=== PATIENT | female | born 1980 | race Caucasian/White ===

== ENCOUNTER 2019-11-01 12:12 | Emergency (ER) | payer MEDICAID, SELFPAY ==
[2019-11-01 12:28] VITALS: BP 117/74; PULSE 69; RESP 18; TEMP 36.2; O2SAT 99
[2019-11-01 12:36] LABS: Bilirubin Small (Negative); Blood Negative (Negative); Clarity Clear (Clear); Glucose Negative (Negative); Ketones Trace mg/dL (Negative); Leukocyte Esterase Trace (Negative); Nitrite Negative (Negative); Specific Gravity >= 1.030 (1.005-1.025); pH 5.5 (5-8)
[2019-11-01 12:42] LABS: Bacteria Moderate HPF (Negative); Epithelial Cells Moderate HPF (Negative); RBC 0-2 HPF (0-2)
[2019-11-01 12:43] LABS: C & S Indicated? No/Sq. Contamination; Casts Negative LPF (Negative); Crystals Negative HPF (Negative); Mucus Moderate (Negative)
--- NOTE | 2019-11-01 12:44 | W.ED.GENAD ---
Discharge Plan Disposition Patient Disposition: HOME Condition: Good Discharge Details Chief Complaint: Abd Prob Clinical Impression: Abdominal pain, Constipation Primary Care Provider: Madonna Burnett ED Provider: Luz Marina Perez Home Meds and New Rx's Prescriptions: New omeprazole 20 mg capsule,delayed release(DR/EC) 20 mg PO DAILY Qty: 14 RF: 0 No Action promethazine 25 mg tablet 25 mg PO DAILY Qty: 30 RF: 2 ondansetron [Zofran ODT] 4 mg tablet,disintegrating 4 mg PO ONCE Qty: 12 RF: 3 clonidine HCl 0.2 mg tablet 0.2 mg PO HS Qty: 30 RF: 3 methadone 10 MG tablet 90 mg PO DAILY RF: 0 Flovent HFA 120 PUFF HFA aerosol inhaler 2 puff Inhalation PRN PRNRF: 0 albuterol sulfate [ProAir HFA] 8.5 GM HFA aerosol inhaler 2 puff PO PRN PRNRF: 0 famotidine 20 mg Tablet 20 mg PO DAILY RF: 0 docusate sodium 100 mg Capsule 100 mg PO DAILY RF: 0 dextroamphetamine-amphetamine 30 mg Capsule,Extended Release 24hr 30 mg PO QAM RF: 0 Discharge Instructions Instructions: Constipation (ED), Abdominal Pain (ED) Additional Instructions: Drink plenty of fluids. Consider a capful of MiraLAX once daily for the next few days until having regular bowel movements. Continue Colace. Use nausea medication if needed as previously prescribed Use reflux medication as prescribed. Rest activities as tolerated. Recheck with primary care doctor in the next 2 to 3 days for reevaluation. For any fevers, chills, nausea, vomiting or worsening symptoms have immediate reevaluation as discussed Medical Decision Making 39-year-old presents for complaints of abdominal pain which began this morning. Patient reports right-sided abdominal pain said maximum tenderness. Patient denies significant pain at this time. Patient reports pain was worse with specific range of motion as well as with attempted bowel movement. Patient reports vomited x1 this morning. No bowel changes associated. Patient has some baseline constipation for which she is on a daily bowel regimen. She was able to move her bowels this morning however she does report significant pain when attempting to move her bowels noted in her abdomen. Patient denies any fevers, chills, headache or dizziness. Patient is on methadone daily which she is compliant with. She denies any recent labs and methadone. She denies history of IV drug use, admits to oral opiate use greater than 10 years ago. Patient denies any upper respiratory symptoms recently. On exam patient has notable right upper quadrant and right lower quadrant tenderness. Denies urinary urgency or frequency. Patient offered pain medication at this time as she reports 6 out of 10 pain with palpation of her abdomen. She declines pain medication or nausea medication at this time. Patient CT of her abdomen reveals CLINICAL HISTORY: RUQ and RLQ abdominal pain, vomitting TECHNIQUE: After IV and without benefit of oral contrast. Exam is also limited by lack of intraabdominal fat. COMPARISON: No exams were available for comparison FINDINGS: The bowel loops are difficult to distinguish. The heart size is normal. The lung bases are clear. The veins are not yet opacified. The liver, gallbladder, spleen, adrenals, pancreas and kidneys are unremarkable. There is no bowel dilatation. There is increased stool seen throughout the colon. There is no abnormal bowel distention or wall thickening. The bladder is nearly empty. The uterus and ovaries are unremarkable. IMPRESSION: Increased quantity of stool. No acute abnormality. Bedside ultrasound preformed with Dr. Nito Yoon reveals normal GB. no Gallstones. Patient is feeling comfortable at this time. Patient does have a prescription at home for Phenergan which she has a full bottle of. Patient will take nausea medication at home. Patient advised of likely constipation as her etiology of pain given her reassuring CT and ultrasound today. Patient's labs are also reassuring. Patient encouraged use of MiraLAX for a few days in conjunction with Colace. Patient reports her understanding. Patient is very familiar with a bowel regimen and is comfortable using these medications. Patient encouraged close follow-up with primary care doctor. Return precautions discussed. The patient was stable and requested discharge. Prior to discharge, my usual and customary return precautions were reviewed with the patient - this included follow-up instructions and reasons to return to the Emergency Department if conditions worsens, does not improve as expected, or other new concerns arise. HPI General Date/Time Provider Initiated Documentation: 11/01/19 12:21. HPI Narrative: This is a 39-year-old patient who complains of abdominal pain presenting to the ER pain which began this morning. Patient reports she awoke with right-sided abdominal pain which is intermittent. Patient reports occasionally sharp pain. Associated with single episode of vomiting. No fevers or chills. Patient denies significant radiation. Patient denies bowel changes. Patient reports pain is significantly worse with attempted bowel movements. Patient does report history of constipation for which she is on a daily bowel regimen. Patient denies upper respiratory symptoms, sore throat or coughing. Patient denies headache or dizziness. Denies urinary urgency or frequency or dysuria. Patient does report no significant change in abdominal pain after taking sips of coffee this morning. Patient does report a history of reflux and did not have notable reflux yesterday. Patient has discontinued her previously prescribed reflux medication has been using Pepcid without relief. Patient denies chest pain or back pain at this time. Denies difficulty breathing shortness of breath or wheezing. Related Data Home Medications Medication Instructions Recorded Confirmed albuterol sulfate [ProAir HFA] 2 puff PO PRN PRN 06/29/16 11/01/19 fluticasone propionate [Flovent 2 puff INHALATION PRN PRN 06/29/16 11/01/19 220MCG] methadone 90 mg PO DAILY 06/29/16 11/01/19 clonidine HCl 0.2 mg tablet 0.2 mg PO HS #30 tab-cap 12/16/18 11/01/19 ondansetron 4 mg disintegrating 4 mg PO ONCE #12 [place] 01/15/19 11/01/19 tablet promethazine 25 mg tablet 25 mg PO DAILY #30 tab-cap 01/15/19 11/01/19 dextroamphetamine-amphetamine 30 mg PO QAM 11/01/19 11/01/19 docusate sodium 100 mg PO DAILY 11/01/19 11/01/19 famotidine 20 mg PO DAILY 11/01/19 11/01/19 omeprazole 20 mg PO DAILY #14 cap 11/01/19 Previous Rx's Medication Instructions Recorded clonidine HCl 0.2 mg tablet 0.2 mg PO HS #30 tab-cap 12/16/18 ondansetron 4 mg disintegrating 4 mg PO ONCE #12 [place] 01/15/19 tablet promethazine 25 mg tablet 25 mg PO DAILY #30 tab-cap 01/15/19 omeprazole 20 mg PO DAILY #14 cap 11/01/19 Allergies Allergy/AdvReac Type Severity Reaction Status Date / Time No Known Allergies Allergy Unverified 11/01/19 12:42 General Stated Complaint: Abd Prob MACKENZIE: 3 Review of Systems All systems reviewed & are unremarkable except as noted in HPI and below Constitutional Constitutional: Denies chills, Denies fever(s) and Denies headache(s) ENT Ears, Nose, Mouth, and Throat: Denies otalgia, Denies headache(s), Denies nasal congestion and Denies sore throat Cardiovascular Cardiovascular: Reports chest pain (Described as reflux yesterday), Denies chest pain with activity, Denies rapid heart rate and Denies radiating jaw, neck or arm pain Respiratory Respiratory: Denies cough, Denies pain with cough and Denies wheezing Gastrointestinal Gastrointestinal: Reports abdominal pain, Denies diarrhea, Reports nausea and Reports vomiting Genitourinary Genitourinary: Denies dysuria, Denies urinary hesitancy and Denies urinary urgency Neurologic Neurologic: Denies headache(s) Allergic/Immunologic Allergic/Immunologic: Denies wheezing [facility] Medical History Anxiety disorder Wellbutrin. Dr Ennis Asthma Attention deficit hyperactivity disorder Stopped Adderall. Sees Dr. Ennis for counseling. Tobacco use disorder Surgical History (Updated 09/09/18 @ 14:35 by [facility] ID) Dilation and curettage (~2007) Heavy bleeding GANGLION CYST REPAIR (~2007) Ligation of fallopian tube (10/07/13) PPTL by [facility] Social History Smoking/Tobacco Use Status: Current every day Alcohol Intake: current Alcohol Intake frequency: holidays/special occasions only Drug use: Occasionally Substance use type: marijuana Exam Narrative Exam Narrative: CONST: Thin, in no acute distress. Well hydrated. Alert and alert. HENMT: Head nomocephalic, normal to inspection. Atraumatic. Hearing grossly normal. External ear canal no erythema or swelling. TM normal bilaterally. Nose normal to inspection. No rhinnorhea. Normal facial exam. Oral mucosa normal. Tounge normal. Dentition normal. Normal posterior oropharynx. Uvula midline. EYES: General normal appearance. Alignment normal. Eyelids normal. Conjunctiva normal. Sclera normal. PERRL. NECK: Normal visual inspection. FROM. No lymphadenopathy. Trachea midline. No Midline tenderness. CHEST: Normal insepection of the chest. RESP: Normal respiratory effort. Speaking full sentences. No cough. No wheezing. No retractions. Clear to auscaltation. Breath sound equal and present bilaterally. CARDIO: No JVD. Normal PMI. Regular Rate. Regular Rhythm. Normal peripheral pulses. Back: No CVA tenderness bilaterally GI: Normal inspection of abdomen. No distension. Soft. Moderate tenderness in the right upper and right lower quadrants. Mild epigastric tenderness. Bowel sounds present in all 4 quadrants. No rebound. No gaurding. Course Vital Signs Vital signs: Vital Signs Temperature 36.2 C L 11/01/19 12:28 Pulse 69 11/01/19 12:28 Respiratory Rate 18 11/01/19 12:28 Blood Pressure 117/74 11/01/19 12:28 Pulse Oximetry 99 11/01/19 12:28 Temperature 36.2 C L 11/01/19 12:28 Temperature Source Temporal Artery Scan 11/01/19 12:28 Pulse 69 11/01/19 12:28 Respiratory Rate 18 11/01/19 12:28 Respiratory Effort Non-Labored 11/01/19 12:33 Blood Pressure 117/74 11/01/19 12:28 Blood Pressure Position Sitting 11/01/19 12:28 Pulse Oximetry 99 11/01/19 12:28 Oxygen Delivery Method Room Air 11/01/19 12:28 Oxygen Flow Rate 0 11/01/19 12:28 Pain Level 6 11/01/19 12:28 Lab/Test Results Lab/Test Results: Laboratory Tests Range/Units 11/01/19 12:22 Urine Color (Yellow) Yellow Urine Clarity (Clear) Clear Urine pH (5-8) 5.5 Ur Specific [place] (1.005-1.025) >= 1.030 H Urine Protein (Negative) mg/dL Negative Urine Ketones (Negative) mg/dL Trace H Urine Blood (Negative) Negative Urine Nitrite (Negative) Negative Urine Bilirubin (Negative) Small H Urine Urobilinogen (Up TO 0.2) EU/dL 1.0 H Ur Leukocyte Esterase (Negative) Trace H Urine RBC (0-2) HPF 0-2 Urine WBC (0-5) HPF 5-10 Ur Epithelial Cells (Negative) HPF Moderate Urine Crystals (Negative) HPF Negative Urine Bacteria (Negative) HPF Moderate Urine Casts (Negative) LPF Negative Urine Mucus (Negative) Moderate Ur Culture Indicated? No/sq. contamination Urine Glucose (Negative) mg/dL Negative POC- Test(urine) Negative
[2019-11-01] MEDS: Normal Saline 1,000 ML 1000 ML IV ×2 (12:55→13:20)
[2019-11-01 13:15] LABS: Absolute Basophil Count 0.06 k/cumm (0.0-0.2); Absolute Eosinophil Count 0.16 k/cumm (0.0-0.7); Absolute Lymphocyte Count 1.97 k/cumm (1.2-3.4); Absolute Monocyte Count 0.58 k/cumm (0.11-0.7); Basophils % 1.3; Eosinophils % 3.6; HCT 36.7 % (36.0-46.0); HGB 12.3 g/dL (12.0-15.5); Lymphocytes % 44.1; Mean Corp. HGB Concentration 33.5 g/dL (32.0-36.0); Mean Corpuscular Hemoglobin 30.8 pg (27.0-33.0); Mean Corpuscular Volume 91.8 fL (80-95); Mean Platelet Volume 9.9 fL (8.0-11.0); Platelet Count 224 x1000/uL (130-400); White Blood Cell Count 4.47 k/cumm (4.4-10.8)
[2019-11-01 13:23] LABS: ALT 14 U/L (14-59); AST 15 U/L (15-37); Albumin 3.9 g/dL (3.4-5.0); Alkaline Phosphatase 44 U/L (46-116); Anion Gap 6.9 mmol/L (3-11); BUN 12 mg/dL (7-18); Bilirubin, Total 0.8 mg/dL (0.2-1.0); CO2 28.1 mmol/L (21.0-32.0); CREATININE 0.86 mg/dL (0.55-1.02); Calcium 8.4 mg/dL (8.5-10.1); Chloride 106 mmol/L (98-107); Glucose 86 mg/dL (74-106); Potassium 3.7 mmol/L (3.5-5.1); Sodium 141 mmol/L (136-145)
[2019-11-01 13:28] LABS: Lipase 50 U/L (73-393)
[2019-11-01] MEDS: Omnipaque 350 MG/ML 100 ML BTL IV (13:41)
--- NOTE | 2019-11-01 13:41 | DI.CT_ITS ---
EXAM: CT ABDOMEN AND PELVIS W CLINICAL HISTORY: RUQ and RLQ abdominal pain, vomitting TECHNIQUE: After IV and without benefit of oral contrast. Exam is also limited by lack of intraabdo kimmy fat. COMPARISON: No exams were available for comparison FINDINGS: The bowel loops are difficult to distinguish. The heart size is normal. The lung bases are clear. The veins are not yet opacified. The liver, gallbladder, spleen, adrenals, pancreas and kidneys are unremarkable. There is no bowel dilatation. There is increased stool seen throughout the colon. Th ere is no abnormal bowel distention or wall thickening. The bladder is nearly empty. The uterus and ovaries are unremarkable. IMPRESSION: Increased quantity of stool. No acute abnormality.
[2019-11-01 15:36] VITALS: BP 104/58; PULSE 78; RESP 18; TEMP 36.7; O2SAT 100
== END 2019-11-01 15:40 | disposition home or self-care (01) ==
PROVIDERS: Emergency Medicine; Emergency Provider Physician Assistant; PCP Family Medicine
DX: R10.11 Right upper quadrant pain (principal); R10.31 Right lower quadrant pain; K59.09 Other constipation; Z79.899 Other long term (current) drug therapy
CPT/HCPCS: 80053; 81025; 83690; 96360; 96361; 99285; 74177; 81003; 81015; 84703; 85025; 99284; J3490

== ENCOUNTER 2021-01-12 01:55 | Outpatient (CLI) | payer MEDICAID, SELFPAY ==
[2021-01-13 13:57] LABS: COVID-19 RT-PCR UVMMC Result Negative (Negative)
== END 2021-01-12 01:56 | disposition home or self-care (01) ==
LOC: LBO 01:56
PROVIDERS: PCP Nurse Practitioner Family; Visit Provider Surgery
DX: Z20.822 Contact with and (suspected) exposure to COVID-19 (principal); Z01.818 Encounter for other preprocedural examination
CPT/HCPCS: U0003

== ENCOUNTER 2021-01-17 07:23 | Day surgery (SDC) | payer MEDICAID, SELFPAY ==
[2021-01-17] VITALS (10 sets, daily range): BP systolic 91–114; BP diastolic 47–65; PULSE 48–75; RESP 10–19; TEMP 36–36.8; O2SAT 98–100
--- NOTE | 2021-01-17 06:46 | ROE_ITS ---
Date of service: 01/17/21 Time of Service: 10:07 Operative Note Operative Note DATE OF PROCEDURE: 01/17/21 PRE-OP DIAGNOSIS: left inguinal hernia and umbilical hernia POST-OP DIAGNOSIS: same PROCEDURE: Left inguinal hernia repair with mesh Umbilical hernia repair with mesh SURGEON: Margo Fabian STATISTICAL MACHINE SERVICER: Emilia Zamarripa ANESTHESIA TYPE: General LMA/ETT (ASA 2/ Brook Flores CRNA) and Primary Nerve Block Refer to Anesthesia Record ESTIMATED BLOOD LOSS: 25 PATHOLOGY: none sent COMPLICATIONS: None Patient was transported to: PACU Patient's condition: stable Implants: Ventralex ST 1.7 inch round patch: LOT [id number] REF [id number] EXP 2022-07-21 BARD Mesh: LOT [id number] [id number] EXP 2024-07-21 Indications: 39 year old female with a reducible left inguinal hernia and umbilical hernia who is here today to discuss repair of both. We discussed inguinal and umbilical hernia repairs with mesh. Her umbilical hernia was already repaired once primarily and not failed. Using a pamphlet we reviewed the procedures as well as their risks and complications. I also discussed preoperative ultrasound-guided nerve blocks to help with postoperative pain. Because she is on methadone did not want to give her narcotics if at all possible. We discussed that with the blocks patients have been quite comfortable and have been able to go home on Tylenol and ibuprofen. We also discussed Covid testing and quarantine requirements. Risks, benefits and complications have been reviewed. Complications include but are not limited to bleeding, infection, injury to vas, vessels and nerves, injury to bowel and adverse reaction to medications. Questions were entertained and answered to their satisfaction and they wished to proceed. COVID-19 testing explained to the patient. Reason for test reviewed. Quarantine per state requirements reviewed with patient. Patient understands and agrees to testing. Proceed with LIH and Umbilical hernia repairs with mesh with left TAP block and BRS block Findings: small 1 cm umbilical hernia Indirect left inguinal hernia Procedure Description: After informed concent was obtained the patient was taken to the operating room and placed in a supine position. Monitors and SCDs were applied and a timeout was done. The patient's name, date of , procedure type, procedure site, allergies to medications, preoperative antibiotic, and DVT prophylaxis were all reviewed. Fire risk was assessed. Next anesthesia did a tap block on the left side under ultrasound guidance as well as a bilateral rectus block. Please see their separate dictation. Once anesthesia was done the abdomen was prepped and draped in a sterile surgical fashion. 2% Lidocaine was injected into the dermis just under the umbilicus. An incision was made with a 10 blade under the umbilicus. Dissection was done with cautery through the subcutaneous tissues and through the umbilical stalk down to the fascia. The hernia defect was identified and measured 1.5 cm. The hernia sac was opened and the peritoneum was swept for adhesions. No adhesions were noted. A 1.7 inch round mesh was then placed under the peritoneum and secured in 4 quarters with 2-0 Proline. Once the mesh was secured the tissues were irrigated with some normal saline. No bleeding was identified. The fascia was closed over the mesh with 0 vicryl running suture. 2-0 Vicryl was used to secure the umbilicus down to the fascia. The dermis was re-approximated with a running 4-0 Vicryl. Next 2% lidocaine was injected into the dermis in the left lower quadrant. An incision was made with a 10 blade in the left lower quadrant. Dissection was done with cautery through the subcutaneous tissues and Loreta's fascia down to the external oblique fascia. The external ring was identified and the external oblique fascia was opened sharply through the external ring. The cut fascia was grasped with hemostats. Pre-peritoneal fat was identified and reduced back into the pre-perironeal space. There was no direct hernia. A 3 x 6 piece of mesh was then cut to size and attached to the lacunar ligament using a 2-0 Prolene double armed suture. The mesh was secured laterally and medially with a 2-0 Prolene, with a running suture. Once the mesh was secured the tissues were irrigated with some normal saline. No bleeding was identified. The external oblique fascia was re-approximated using 2-0 Vicryl running suture. The Loreta's fascia was re-approximated using interrupted 3-0 Vicryl. The dermis was re- approximated with a running 4-0 Vicryl. The skin was cleaned and dried and skin affix was applied to both incisions. The patient was woken up and taken back to recovery in stable condition. There were no immediate complications. Sponge, instrument and needle counts were correct at the end of the case x2.
--- NOTE | 2021-01-17 06:47 | PDOC.DSDIS_ITS ---
Discharge Plan Disposition Patient Disposition: HOME Condition: Good Discharge Details Reason For Visit: [facility] and Attending Provider: Margo Fabian Primary Care Provider: Senait Yañez Home Meds and New Rx's Prescriptions: Continued bisacodyl 5 mg tablet 5 mg PO DAILY RF: 0 omeprazole 20 mg capsule,delayed release(DR/EC) 20 mg PO HS RF: 0 Vyvanse 70 mg capsule 70 mg PO DAILY RF: 0 ondansetron HCl [Zofran] 4 mg tablet 4 mg PO DAILY RF: 0 promethazine 25 mg tablet 25 mg PO TID PRNRF: 0 methadone 10 MG tablet 90 mg PO DAILY RF: 0 albuterol sulfate [ProAir HFA] 8.5 GM HFA aerosol inhaler 2 puff PO PRN PRNRF: 0 Discharge Instructions Instructions: Inguinal Hernia Repair (DC), Umbilical Hernia Repair (DC) Additional Instructions: Activity at Home after surgery: 1. Make sure you walk outside at least 4 times per day 2. You should be able to climb a flight of stairs 3. No driving while in pain or taking pain medications 4. No strenuous activity or heavy lifting for 4 weeks (open surgery) Diet, Nutrition, & wound healin. Avoid alcohol until after you are recovered from your surgery 2. Make sure to eat plenty of lean protein (meat, fish, eggs, cottage cheese, beans) 3. Eat a variety of fruits and vegetables. Eat plenty of high fiber foods to avoid constipation. 4. Drink plenty of liquids to stay hydrated and avoid constipation Pain Medications: 1. Tylenol 650mg every 6 hours as needed and Ibuprofen 600 mg every 6 hours as needed. You may alternate between the 2 medications every 3 hours 2. If a narcotic has been prescribed take as directed only for breakthrough pain For Constipation: 1. Take Milk of Magnesia or MiraLax as needed for constipation Other: 1. You may shower daily. Do not scrub the incisions 2. Do not soak the incisions for 1 week 3. You may alternate ice and heat as needed for pain and swelling Wound Care: 1. Keep the incisions clean and dry Please call our office if you develop: 1. Fevers >101.5 2. Nausea or Vomiting 3. Worsening pain 4. Redness and thick discharge from the wounds If after hours please call the Hospital at and ask to speak to the on-call surgeon Referrals: Margo Fabian MD [ [facility] STAFF PHYSICIAN] - 02/02/21 8:30 am Activity:: No lifting >20 lb Diet:: As Tolerated Discharge Orders Discharge Orders: Discharge Order (Routine); Ordered 01/17/21 Ordered By: Margo Fabian
[2021-01-17] MEDS: Acetaminophen 500 MG TAB 1000 MG PO (08:10)
[2021-01-17] MEDS: Celecoxib 200 MG CAP PO (08:10)
[2021-01-17] MEDS: Lactated Ringers 1,000 ML 80 ML IV (08:20)
[2021-01-17] MEDS: Bupivacaine 0.25% Pres-Free 30 ML VIAL (09:04)
[2021-01-17] MEDS: ceFAZolin 2 GM/50 ML BAG IVPB (09:04)
[2021-01-17] MEDS: Lidocaine 2% Multi-Dose 50 ML VIAL (09:20)
[2021-01-17] MEDS: fentaNYL 100 MCG/2 ML VIAL IVP ×3 (10:48→11:14)
[2021-01-17] MEDS: oxyCODONE 5 MG TAB PO (11:40)
== END 2021-01-17 12:40 | disposition home or self-care (01) ==
LOC: SUR 07:24
PROVIDERS: PCP Nurse Practitioner Family; Visit Provider Surgery
PROC: (CPT 49505; principal; 2021-01-17 09:00)
PROC: (CPT 49505; 2021-01-17 09:00)
DX: K40.90 Unilateral inguinal hernia, without obstruction or gangrene, not specified as recurrent (principal); K42.9 Umbilical hernia without obstruction or gangrene
CPT/HCPCS: 49505; 49585; 76942; 81025; C1781; J0690; J1100; J1885; J2001; J2405; J2704; J3010

== ENCOUNTER 2021-03-07 11:47 | Emergency (ER) | payer MEDICAID, SELFPAY ==
[2021-03-07] VITALS (50 sets, daily range): BP systolic 98–160; BP diastolic 52–143; PULSE 38–75; RESP 9–25; TEMP 36.1–37.2; O2SAT 96–100
[2021-03-07 12:25] LABS: Lactate 0.6 mmol/L (0.6-1.4)
--- NOTE | 2021-03-07 12:25 | ED.GENADUL_ITS ---
Discharge Plan Disposition Patient Disposition: HOME Condition: Good Discharge Details Clinical Impression: Abdominal pain Primary Care Provider: Senait Yañez ED Provider: Daniel Le Home Meds and New Rx's Prescriptions: New polyethylene glycol 3350 [Miralax] 17 gram/dose powder 17 g PO DAILY Qty: 119 RF: 0 magnesium citrate Solution 300 ml PO ONCE Qty: 296 RF: 0 No Action bisacodyl 5 mg tablet 5 mg PO DAILY RF: 0 omeprazole 20 mg capsule,delayed release(DR/EC) 20 mg PO HS RF: 0 Vyvanse 70 mg capsule 70 mg PO DAILY RF: 0 ondansetron HCl [Zofran] 4 mg tablet 4 mg PO DAILY RF: 0 promethazine 25 mg tablet 25 mg PO TID PRNRF: 0 methadone 10 MG tablet 90 mg PO DAILY RF: 0 albuterol sulfate [ProAir HFA] 8.5 GM HFA aerosol inhaler 2 puff PO PRN PRNRF: 0 oxycodone 5 mg tablet 5 mg PO Q6H PRNQty: 10 RF: 0 Discharge Instructions Instructions: Abdominal Pain (ED) Additional Instructions: Please follow-up with primary care doctor in 1 to 2 days for reevaluation You may try taking the MiraLAX daily for the next several days and this will likely allow you to have a bowel movement You could also try suppository, glycerin I have also supplied you with magnesium citrate if you do not have good effect with the MiraLAX in the next couple of days you may try taking magnesium citrate Please return should you have new or worsening complaints including fever, chills, or with any new or progressing symptoms Discharge Data Discharge Date/Time-TO BE ENTERED AT DEPARTURE: 03/07/21 18:31 Medical Decision Making <FILOMENA Alberto - Last Filed: 03/08/21 08:18> Patient appears well but is tender in her right lower quadrant, the radiologist was unable to visualize patient's right ovary on CT scan or ultrasound and unfortunately cannot document flow, radiology is unable to evaluate on CT scan additionally I did call Dr. Sierra, ORDNANCE ARTIFICER HELPER and she feels as the patient is low risk for torsion ovary is completely and visualized unlikely with 80. If patient had noted torsion especially 4 days out from onset of symptoms, she does not think additional evaluation at this time from an ovarian standpoint indicated and patient is much more comfortable on reevaluation Given that we are unable to visualize the appendix, I did discuss the patient with on-call surgery, Dr. Nava. Willing to evaluate the patient in the emergency room Patient does have a notable amount of stool on her CT scan, and will attempt some MiraLAX and also give patient mag citrate should she have persistent discomfort She improved to follow-up with her primary care physician in 24 hours for reevaluation return earlier should she have new or worsening complaints There is no evidence of pelvic pathology on my exam in the emergency room Patient was signed out pending surgical consultation and evaluation to Daniel Le, physician automotive service assistant in stable condition with stable vital Negative test, urine without evidence of infection Differential Diagnosis Differential Diagnosis: PID, appendicitis, urinary tract infection, Medical Records Medical records reviewed: Yes I reviewed the patient's medical records. Lab Data Lab results reviewed: Yes I reviewed the patient's lab results. <FILOMENA Jose - Last Filed: 03/07/21 17:51> I assumed care of this 40-year-old female by my colleague FILOMENA Scherer at shift change. Please see her initial HPI and examination. Diagnostic work-up completed, awaiting surgical consultation. Surgeon on-call, Dr. Mcgill, personally evaluated the patient. Please see his note. He reports that the patient can be discharged from the ER, now on emergent surgical abdominal examination. I personally evaluated the patient. She is resting comfortably. No acute distress. Denies any nausea or vomiting. Reports that her pain is much improved compared to her initial presentation. She has no additional questions or concerns and is comfortable discharge. She will be discharged with the initial discharge instructions given by my colleague, FILOMENA Scherer HPI <FILOMENA Alberto - Last Filed: 03/08/21 08:18> This 40-year-old female with past medical history of opioid addiction on methadone and status. Bilateral inguinal hernia repair in December by Dr. Fabian presents with reports of right lower quadrant abdominal pain which began abruptly 4 days ago.. Denies any urinary symptoms. Reports she is sexually active and monogamous with her partner 15 years. Denies any risk of STDs or vaginal discharge. Denies exacerbating or alleviating factors. Denies any nausea or vomiting. Denies any diarrhea or known sick contacts. States her temp of 101 yesterday. Denies any urinary complaints or chance of . Began her menses today reportedly. General Date/Time Provider Initiated Documentation: 03/07/21 12:04 . Related Data Home Medications Medication Instructions Recorded Confirmed albuterol sulfate [ProAir HFA] 2 puff PO PRN PRN 06/29/16 03/07/21 methadone 90 mg PO DAILY 06/29/16 03/07/21 bisacodyl 5 mg tablet 5 mg PO DAILY tab 01/25/20 03/07/21 omeprazole 20 mg capsule,delayed 20 mg PO HS 01/25/20 03/07/21 release lisdexamfetamine 70 mg capsule 70 mg PO DAILY 12/19/20 03/07/21 ondansetron HCl 4 mg tablet 4 mg PO DAILY tab 12/19/20 01/17/21 promethazine 25 mg tablet 25 mg PO TID PRN 12/19/20 03/07/21 oxycodone 5 mg PO Q6H PRN #10 tab 01/17/21 magnesium citrate 300 ml PO ONCE #296 ml 03/07/21 polyethylene glycol 3350 [Miralax] 17 g PO DAILY #119 g 03/07/21 Previous Rx's Medication Instructions Recorded oxycodone 5 mg PO Q6H PRN #10 tab 01/17/21 magnesium citrate 300 ml PO ONCE #296 ml 03/07/21 polyethylene glycol 3350 [Miralax] 17 g PO DAILY #119 g 03/07/21 Allergies Allergy/AdvReac Type Severity Reaction Status Date / Time dicyclomine [From Bentyl] Allergy Unknown itchy all Verified 03/07/21 12:05 over General Stated Complaint: Abd Prob MACKENZIE: 3 <FILOMENA Jose - Last Filed: 03/07/21 17:51> This 40-year-old female with past medical history of opioid addiction on methadone and status. Bilateral inguinal hernia repair in December by Dr. Fabian presents with reports of right lower quadrant abdominal pain which began abruptly 4 days ago.. Denies any urinary symptoms. Reports she is sexually active and monogamous with her partner 15 years. Denies any risk of STDs or vaginal discharge. Denies exacerbating or alleviating factors. Denies any nausea or vomiting. Denies any diarrhea or known sick contacts. States her temp of 101 yesterday. Denies any urinary complaints or chance of . Began her menses today reportedly. Review of Systems <FILOMENA Alberto - Last Filed: 03/08/21 08:18> Narrative: Negative x7 aside, from where indicated in HPI PFSH <FILOMENA Alberto - Last Filed: 03/08/21 08:18> Medical History (Updated 03/07/21 @ 16:45 by FILOMENA Alberto) Anxiety disorder Wellbutrin. Dr Ennis Asthma Attention deficit hyperactivity disorder Stopped Adderall. Sees Dr. Ennis for counseling. Depression Opioid dependence on methadone Tobacco use disorder Surgical History (Updated 02/02/21 @ 07:16 by Margo Fabian MD) Dilation and curettage (~2007) Heavy bleeding GANGLION CYST REPAIR (~2007) History of ventral hernia repair (~01/17/21) umbilical Ligation of fallopian tube (10/07/13) PPTL by [facility] S/P left inguinal hernia repair (~01/17/21) Social History (Updated 01/25/20 @ 10:42 by Margo Fabian MD) Smoking/Tobacco Use Status: Current every day Tobacco Type: cigarettes Smoking packs per day: 0.5 Smoking cigarettes per day: 10.0 Smoking risk assessment performed?: Yes Alcohol Intake: current Alcohol Intake frequency: holidays/special occasions only Drug use: Occasionally Substance use type: marijuana Details: opioid dependence daily methadone Last marijuana used 2 weeks ago Household members: family Current gender identity: female Do you feel safe at home: Yes Do you feel safe in your relationship?: Yes Exam <FILOMENA Alberto - Last Filed: 03/08/21 08:18> Const General: cooperative and well developed HENMT Other: Moist mucous membranes Chest Chest: normal inspection of the chest Resp Effort & Inspection: normal respiratory effort Cardio Rate: regular rate Rhythm: regular rhythm GI Other: Right lower quadrant tenderness, no rebound or guarding No CVA tenderness Other: Negative cervical motion tenderness, no external lesions, blood noted in vagina, consistent with menses, no adnexal tenderness Skin General skin exam: no rashes or lesions noted Neuro General: patient alert and patient oriented x3 Course <FILOMENA Alberto - Last Filed: 03/08/21 08:18> Vital Signs Vital signs: Vital Signs Temperature 37.2 C 03/07/21 12:00 Pulse 75 03/07/21 12:00 Respiratory Rate 16 03/07/21 12:00 Blood Pressure 128/55 L 03/07/21 12:00 Pulse Oximetry 96 03/07/21 12:00 Temperature 37.2 C 03/07/21 12:00 Temperature Source Temporal Artery Scan 03/07/21 12:00 Pulse 75 03/07/21 12:00 Respiratory Rate 16 03/07/21 12:00 Respiratory Effort Non-Labored 03/07/21 12:04 Blood Pressure 128/55 L 03/07/21 12:00 Blood Pressure Position Sitting 03/07/21 12:00 Pulse Oximetry 96 03/07/21 12:00 Oxygen Delivery Method Room Air 03/07/21 12:00 Oxygen Flow Rate 0 03/07/21 12:00 Pain Level 6 03/07/21 12:00 Sign Out <FILOMENA Alberto - Last Filed: 03/08/21 08:18> Sign Out Data: Sign Out Comment: pending surgical consultation, on way to ER written to go Last updated by Elida Scherer PA at 03/07/21 16:58
[2021-03-07 12:27] LABS: Abs Immature Grans 0.01 10^3/uL (0.0-0.06); Absolute Basophil Count 0.07 10^3/uL (0.0-0.2); Absolute Eosinophil Count 0.19 10^3/uL (0.0-0.7); Absolute Lymphocyte Count 1.82 10^3/uL (1.2-3.4); Absolute Monocyte Count 0.41 10^3/uL (0.1-0.8); Absolute Neutrophil Count 2.47 10^3/uL (1.2-6.7); Basophils % 1.4; Eosinophils % 3.8; HCT 32.4 % (36.0-46.0); HGB 10.7 g/dL (11.2-15.7); Immature Grans % 0.2; Lymphocytes % 36.6; MCH 31.8 pg (27.0-33.0); MCV 96.1 fL (80-95); MPV 9.6 fL (8.0-11.0); Monocytes % 8.2; Neutrophils % 49.8; Nucleated RBC 0 %; Platelet Count 254 10^3/uL (130-400); RBC 3.37 10^6/uL (3.93-5.22); RDW 12.8 % (11.7-14.6); RDW-SD 45.8 fL; WBC 4.97 10^3/uL (4.4-10.8)
--- NOTE | 2021-03-07 12:27 | DI.US_ITS ---
EXAM: US PELVIS TRANSVAGINAL CLINICAL HISTORY: RLQ pain TECHNIQUE: Ultrasound of the pelvis was performed both transabdominal and transvaginal. COMPARISON: US US OR ANESTHESIA from 01/17/2021 FINDINGS: UTERUS: Measures 8.2 cm length x 4 cm AP x 4.6 cm wide. There are no uterine fibroids. Endometrial thickness measures 10 mm. There is no fluid in the endometrial canal. CERVIX: There are no obvious nabothian cysts. RIGHT OVARY: Not able to be visualized. LEFT OVARY: Measures 2.5 x 1.3 x 1.6 cm Exhibits normal blood flow. Contains a simple cyst measuring 1.2 x 1.3 x 1.1 cm, probably dominant f ollicle. CUL-DE-SAC: Small amount of free fluid noted IMPRESSION: 1. Normal appearing uterus and age-appropriate endometrium. 2. Dominant 1.3 cm follicle left ovary noted. 3. The opposite-right ovary is not able to be seen. There is small amount of free fluid in the pelvis. DATA REPOSITORY:
[2021-03-07 12:40] LABS: Bilirubin Small (Negative); Blood Negative (Negative); Clarity Clear (Clear); Glucose Negative (Negative); Ketones Trace mg/dL (Negative); Leukocyte Esterase Negative (Negative); Nitrite Negative (Negative); Specific Gravity >= 1.030 (1.005-1.025); Urobilinogen 0.2 EU/dL (Up TO 0.2)
[2021-03-07 12:43] LABS: ALT 15 U/L (14-59); AST 9 U/L (15-37); Albumin 3.9 g/dL (3.4-5.0); Alkaline Phosphatase 45 U/L (46-116); Anion Gap 8.9 mmol/L (3-11); BUN 12 mg/dL (7-18); Bilirubin, Total 0.3 mg/dL (0.2-1.0); CO2 27.1 mmol/L (21.0-32.0); CREATININE 0.8 mg/dL (0.55-1.02); Calcium 8.2 mg/dL (8.5-10.1); Chloride 106 mmol/L (98-107); Glucose 103 mg/dL (74-106); Lipase 50 U/L (73-393); Magnesium 2.2 mg/dL (1.8-2.4); Potassium 3.7 mmol/L (3.5-5.1); Sodium 142 mmol/L (136-145); Total Protein 6.7 g/dL (6.4-8.2); Troponin I < 0.05 ng/mL (<0.06)
[2021-03-07] MEDS: Normal Saline - Diluent 50 ML VIAL IV (14:22)
--- NOTE | 2021-03-07 14:28 | DI.CT_ITS ---
EXAM: CT ABDOMEN PELVIS W CLINICAL HISTORY: pain RLQ, fever, recent hernia surgery, bilateral. TECHNIQUE: Imaging Protocol: Axial computed tomography images with coronal and sagittal reformatted images were created and reviewed CONTRAST MATERIAL: Intravenous: Omnipaque 100cc Oral: None COMPARISON: CT CT ABDOMEN PELVIS W from 11/01/2019 FINDINGS: VISUALIZED LUNG BASES: No nodules nor pleural effusions evident. ABDOMEN: There is no ascites in the upper abdomen.. 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 There is non opacification of systemic veins within the liver and slight hete rogeneity of the hepatic architecture. This may just be related to the phase of injection but I note that this is similar pattern as seen on the previous study.. GALLBLADDER/BILIARY: No obvious gallbladder pathology. CBD diameter is upper normal, unchanged. PANCREAS: No evidence of pancreatic mass. Pancreatic duct diameter is upper normal. No peripancreat ic fluid collections. SPLEEN: Spleen is not enlarged. No obvious intrasplenic lesions. Splenic and portal veins are paten t. ADRENALS: There are no significant adrenal masses. KIDNEYS:No cysts evident. No solid renal masses. No calculi nor hydronephrosis.. ABDOMINAL AORTA: Abdominal aorta is not enlarged. LYMPH NODES:There is no retroperitineal nor paraaortic adenopathy. ABDOMINAL WALL/GI: No evidence of significant anterior abdominal wall hernia. Increased density at l evel of the umbilicus is noted but this is unchanged from the prior study and there is no drainable f luid collection at this level There is abundant fecal material in the colon. PELVIS: GI: The appendix is difficult to locate as a definite separate structure. There is a viscus in this region which exhibits a diameter of 6 millimeters. LYMPH NODES: There is no intrapelvic nor inguinal adenopathy. REPRODUCTIVE: Uterus appears unremarkable. No abnormal adnexal masses noted. Both ovaries are diffi cult to identify among the unopacified multiple bowel loops. There is small amount of free fluid in the pelvis. URINARY BLADDER: No calculi nor obvious masses evident OSSEOUS: No significant osseous lesions. IMPRESSION: 1. Appendix is difficult to identify for certain.. No obvious acute appendicitis. 2. No obvious ovarian masses. There is small amount of fluid in the pelvis evident. 3. Kelsy's right hepatic lobe variant noted. RADIATION DOSE DELIVERED: 610.8mGy.cm Total DLP DATA REPOSITORY: All CT scans at this facility are submitted to the National Radiology Data Registry (NRDR) Dose Index Registry (DIR) with the [employer] (ACR). RADIATION OPTIMIZATION: All CT scans at this facility use at least one of these dose optimization te chniques: automated exposure control; mA and/or kV adjustment per patient size (includes targeted exa ms where dose is matched to clinical indication); or iterative reconstruction.
[2021-03-07] MEDS: fentaNYL 100 MCG/2 ML VIAL 50 MCG IVP (15:06)
--- NOTE | 2021-03-07 18:03 | SCONE_ITS ---
Date of service: 03/07/21 Time of Service: 18:03 Assessment and Plan Assessment and plan (1) Abdominal pain: Status: Acute Assessment and plan: (1) Abdominal pain: Status: Acute Assessment and plan: Assessment?abdominal pain right more than left of 48 hours duration. There is no physical exam or CT evidence of peritoneal or surgical process. Specifically other than location of pain there are no suggestions that this represents appendicitis. Symptoms may well be due to obstipation. Patient affirms that she is able to drink liquids. I have suggested she stay on a clear liquid diet for now. She should use her usual Dulcolax tabs and I have suggested that she use some milk of magnesia or MiraLAX to help prompt bowel activity. This may help alleviate her pain. Patient is comfortable watching things at home. If symptoms continue to exaggerate she should return to the ER for reevaluation as needed. Plan?no plans for operation or in-hospital observation. Clear liquids Ducalax with MiraLAX or milk of magnesia for obstipation Return to ER as needed. Jose Barrera MD History of Present Illness History of Present Illness Chief Complaint: abdominal pain Narrative: 40-year-old lady has experienced abdominal pain for approximately 4 days. Pain is located on right side. It has not moved. She finds nothing improves or alleviates the discomfort. She has had no fever or chills. No nausea or vomiting. Able to drink liquids and take a light diet. Has chronic constipation and uses Dulcolax for this. Had a bowel movement yesterday. Patient is on methadone for narcotic addiction. She had a left inguinal hernia in the umbilical hernia repaired a couple of months back. Still has some tenderness at these incisions but they are no different in the last couple of days. CT scan today reveals obstipated stool. No abnormal bowel loops. No free fluid or abscess. Appendix is not distinctly identified. Ultrasound of abdomen was done earlier today. ER PA communicates that this was nonconclusive as well. WBC normal. Consults Consult date: 03/07/21 Review of Systems Gastrointestinal Gastrointestinal: Reports constipation [facility] Medical History (Updated 03/07/21 @ 16:45 by FILOMENA Alberto) Anxiety disorder Wellbutrin. Dr Ennis Asthma Attention deficit hyperactivity disorder Stopped Adderall. Sees Dr. Ennis for counseling. Depression Opioid dependence on methadone Tobacco use disorder Surgical History (Updated 02/02/21 @ 07:16 by Margo Fabian MD) Dilation and curettage (~2007) Heavy bleeding GANGLION CYST REPAIR (~2007) History of ventral hernia repair (~01/17/21) umbilical Ligation of fallopian tube (10/07/13) PPTL by [facility] S/P left inguinal hernia repair (~01/17/21) Social History (Updated 01/25/20 @ 10:42 by Margo Fabian MD) Smoking/Tobacco Use Status: Current every day Tobacco Type: cigarettes Smoking packs per day: 0.5 Smoking cigarettes per day: 10.0 Smoking risk assessment performed?: Yes Alcohol Intake: current Alcohol Intake frequency: holidays/special occasions only Drug use: Occasionally Substance use type: marijuana Details: opioid dependence daily methadone Last marijuana used 2 weeks ago Household members: family Current gender identity: female Do you feel safe at home: Yes Do you feel safe in your relationship?: Yes Exam Eyes Sclera: sclerae normal Resp Effort & Inspection: normal respiratory effort and able to speak in complete sentences Cardio Rate: regular rate GI Other: Unremarkable healing incisions in periumbilical and left groin regions. Abdomen nondistended. Diffuse mild tenderness throughout right side greater than left side. No guarding. No palpable mass or organomegaly. Psych Mood: congruent mood Affect: normal affect Attitude: cooperative Results Last Vital Signs Temp 97.0 F L 03/07/21 15:05 Pulse 46 L 03/07/21 16:00 Resp 20 03/07/21 16:01 BP 98/57 L 03/07/21 16:00 Pulse Ox 96 03/07/21 16:01 Labs Result diagrams: 03/07/21 12:20 03/07/21 12:20 Labs: Laboratory Results - last 24 hr 03/07/21 03/07/21 03/07/21 12:20 12:20 12:20 WBC 4.97 RBC 3.37 L Hgb 10.7 L Hct 32.4 L MCV 96.1 H MCH 31.8 MCHC 33.0 RDW 12.8 Plt Count 254 MPV 9.6 Immature Gran % 0.2 Neutrophils % 49.8 Lymphocytes % 36.6 Monocytes % 8.2 Eosinophils % 3.8 Basophils % 1.4 Nucleated RBC % 0 Absolute Neutrophils 2.47 Absolute Lymphocytes 1.82 Absolute Monocytes 0.41 Absolute Eosinophils 0.19 Absolute Basophils 0.07 VBG Lactate 0.6 Sodium 142 Potassium 3.7 Chloride 106 Carbon Dioxide 27.1 Anion Gap 8.9 BUN 12 Creatinine 0.8 Estimated GFR/1.73 m2 >= 60.00 Glucose 103 Calcium 8.2 L Magnesium 2.2 Total Bilirubin 0.3 AST 9 L ALT 15 Alkaline Phosphatase 45 L Troponin I < 0.05 Total Protein 6.7 Albumin 3.9 Lipase 50 Urine Color Urine Clarity Urine pH Ur Specific Viper Urine Protein Urine Ketones Urine Blood Urine Nitrite Urine Bilirubin Urine Urobilinogen Ur Leukocyte Esterase Urine Glucose 03/07/21 12:34 WBC RBC Hgb Hct MCV MCH MCHC RDW Plt Count MPV Immature Gran % Neutrophils % Lymphocytes % Monocytes % Eosinophils % Basophils % Nucleated RBC % Absolute Neutrophils Absolute Lymphocytes Absolute Monocytes Absolute Eosinophils Absolute Basophils VBG Lactate Sodium Potassium Chloride Carbon Dioxide Anion Gap BUN Creatinine Estimated GFR/1.73 m2 Glucose Calcium Magnesium Total Bilirubin AST ALT Alkaline Phosphatase Troponin I Total Protein Albumin Lipase Urine Color Johana Urine Clarity Clear Urine pH 6.0 Ur Specific Viper >= 1.030 H Urine Protein Negative Urine Ketones Trace H Urine Blood Negative Urine Nitrite Negative Urine Bilirubin Small H Urine Urobilinogen 0.2 Ur Leukocyte Esterase Negative Urine Glucose Negative
[2021-03-09 14:39] LABS: Chlamydia Result Negative (Negative); GC Result Negative (Negative)
== END 2021-03-07 18:31 | disposition home or self-care (01) ==
PROVIDERS: Physician Assistant; Emergency Provider Physician Assistant; PCP Nurse Practitioner Family
DX: R10.31 Right lower quadrant pain (principal); R50.9 Fever, unspecified
CPT/HCPCS: 36415; 80053; 81025; 83690; 87491; 87591; 96374; 99253; 99285; 74177; 76830; 76856; 81003; 83605; 83735; 84484; 85025; 87480; 87510; 87660; 99284; J3010